=== PATIENT | male | born 1965 | race Caucasian/White ===

== ENCOUNTER 2019-03-07 09:01 | Emergency (ER) | payer BC ==
[2019-03-07 09:10] VITALS: BP 150/98
[2019-03-07] MEDS ORDERED: CHERRY SYRUP 10 ML UDC PO ONE (09:54)
[2019-03-07] MEDS ORDERED: DEXAMETHASONE 10 MG/ML VIAL PO STA (09:54)
[2019-03-07] MEDS ORDERED: KETOROLAC 60 MG/2 ML VIAL IM STA (09:54)
--- NOTE | 2019-03-07 09:57 | ED Physician Documentation ---
PD HPI NECK PAIN - Stated complaint Stated Complaint: NECK PX - Chief complaint Chief Complaint: General - History obtained from History obtained from: Patient - History of Present Illness Timing - onset: How many days ago (2) Timing - duration: Days (2) Timing - details: Gradual onset, Still present Location: Mid, Lower, Left Quality: Pain, Spasm, Sharp, Similar to prior episodes Associated symptoms: No: Fever, Weakness, Numbness, Incontinent of urine, Unable to urinate, Hematuria, Incontinent of stool Improves with: Rest, Position Worsened by: Movement Contributing factors: Other (sleeping on a strange bed) Similar symptoms before: No diagnosis Recently seen: Not recently seen - Additional information Additional information: 53-year-old male who is visiting the [place] here from [place] on a fishing trip with his friends has developed acute neck pain beginning yesterday morning. He states that he feels that he woke up with his neck pain sleeping in a strange bed with a strange pillow. Review of Systems Constitutional: denies: Fever, Chills Eyes: denies: Decreased vision Ears: denies: Ear pain Nose: denies: Rhinorrhea / runny nose, Congestion Throat: denies: Sore throat Cardiac: denies: Chest pain / pressure, Palpitations Respiratory: denies: Dyspnea, Cough GI: denies: Abdominal Pain, Nausea, Vomiting : denies: Dysuria, Frequency Skin: denies: Rash Musculoskeletal: reports: Neck pain. denies: Back pain, Extremity pain Neurologic: denies: Generalized weakness, Focal weakness, Numbness PD PAST MEDICAL HISTORY - Present Medications Home Medications: Ambulatory Orders Medication Instructions Recorded Confirmed Cyclobenzaprine [Flexeril] 10 mg PO TID PRN #20 tablet 03/07/19 Hydrocodone/Acetaminophen 1 - 2 each PO Q6H PRN #14 tablet 03/07/19 [Hydrocodon-Acetaminophen 5-325] - Allergies Allergies/Adverse Reactions: Allergies Allergy/AdvReac Type Severity Reaction Status Date / Time No Known Drug Allergies Allergy Verified 03/07/19 09:06 - Social History Does the pt smoke?: No Smoking Status: Never smoker Does the pt drink ETOH?: Yes ETOH Use: Beer Does the pt have substance abuse?: No PD ED PE NORMAL - Vitals Vital signs reviewed: Yes (hypertensive ) - General General: Alert and oriented X 3, Well developed/nourished, Other (siting leaning to the left moves entire body to look around (has a stiff neck)) - HEENT HEENT: Atraumatic, PERRL, EOMI, Ears normal, Moist mucous membranes, Pharynx benign, Dentition benign - Neck Neck: Supple, no meningeal sign, No bony TTP, Other (There is tenderness to the paraspinous musucles of the neck bilaterally and worse on the left. There is spasm palpable worse on the left. ) - Cardiac Cardiac: RRR, No murmur - Respiratory Respiratory: No respiratory distress, Clear bilaterally - Abdomen Abdomen: Soft, Non tender - Back Back: No CVA TTP, No spinal TTP - Derm Derm: Normal color, Warm and dry, No rash - Extremities Extremities: No deformity, No edema - Neuro Neuro: Alert and oriented X 3, facility worker 2-12 intact, No motor deficit, No sensory deficit, Normal speech Eye Opening: Spontaneous Motor: Obeys Commands Verbal: Oriented GCS Score: 15 - Psych Psych: Normal mood, Normal affect Results - Vitals Vitals: Vital Signs - 24 hr 03/07/19 09:04 Temperature 96.5 C H Heart Rate 73 Respiratory 14 Rate Blood Pressure 150/98 H O2 Saturation 98 Oxygen O2 Source Room air PD MEDICAL DECISION MAKING - ED course Complexity details: considered differential, d/w patient ED course: 53-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 We will prescribe some pain medication and muscle relaxant as well. Departure - Departure Disposition: 01 Home, Self Care Clinical Impression: Muscle spasms of neck Condition: Stable Instructions: ED Spasm Neck No Injury, Torticollis Follow-Up: Your, doctor [Other] Prescriptions: Cyclobenzaprine [Flexeril] 10 mg PO TID PRN #20 tablet PRN Reason: Spasms Hydrocodone/Acetaminophen [Hydrocodon-Acetaminophen 5-325] 1 - 2 each PO Q6H PRN #14 tablet PRN Reason: pain Comments: An important part of treating this neck spasm is to be certain you are adequately hydrated and use ice and stretch and avoid using a heating pack.
== END 2019-03-07 10:08 | disposition home or self-care (01) ==
LOC: ED 09:01
DX: G24.3 Spasmodic torticollis (principal)
CPT/HCPCS: 96372; 99283